=== PATIENT | female | born 1940 | race Caucasian/White ===

== ENCOUNTER 2022-04-02 12:39 | Emergency (ER) | payer OTHER ==
[2022-04-02 13:01] VITALS: RESP 20; TEMP 97.3; BMI 33.6
[2022-04-02] MEDS ORDERED: SODIUM CHLORIDE 0.9% 1000 ML INFUS.BAG IV ONE (13:02)
[2022-04-02 14:44] LABS: BASO % 0.3 % (0-2.0); EOS % 0.8 % (0-4.5); HEMATOCRIT 41.6 % (32.4-45.2); HEMOGLOBIN 14.2 GM/dL (10.7-15.3); LYMPH % 18.4 % (8-40); MCH 30.6 pg (25.7-33.7); MCHC 34.1 g/dl (32.0-36.0); MEAN CELL VOLUME 89.7 fl (80-96); MONO % 10.1 % (3.8-10.2); NEUT % 70.4 % (42.8-82.8); PLATELET COUNT 215 10^3/uL (134-434); RBC 4.63 M/mm3 (3.60-5.2); RDW 13.7 % (11.6-15.6); WHITE BLOOD COUNT 6.5 K/mm3 (4.0-10.0)
[2022-04-02 14:52] LABS: INR 1.02 (0.83-1.09); PROTHROMBIN TIME (PATIENT) 11.7 SEC (9.7-13.0)
[2022-04-02 14:55] LABS: ACTIVATED PTT 25.2 SECONDS (25.2-36.5)
[2022-04-02 15:02] LABS: CALCIUM 8.5 mg/dL (8.5-10.1)
[2022-04-02 15:03] LABS: ALBUMIN 3.1 g/dl (3.4-5.0); BLOOD UREA NITROGEN 26.6 mg/dL (7-18)
[2022-04-02 15:06] LABS: CREATININE 1.9 mg/dL (0.55-1.3)
[2022-04-02 15:07] LABS: BILIRUBIN,TOTAL 1.1 mg/dL (0.2-1); TOT PROT 6.3 g/dl (6.4-8.2)
[2022-04-02] MEDS ORDERED: LACTATED RINGERS SOLUTION 1000 ML INFUS.BAG IV ONE (16:22)
[2022-04-02 17:52] LABS: EPI CELLS 16 /uL (0-25.1); HYALINE CASTS 0 /uL (0-3.1); PH,URINE 5.5 (5.0-8.0); URINE APPEARANCE CLEAR; URINE BACTERIA 175 /uL (0-1359); URINE BILIRUBIN NEGATIVE (NEGATIVE); URINE COLOR YELLOW; URINE GLUCOSE (UA) 3+ (NEGATIVE); URINE KETONE NEGATIVE (NEGATIVE); URINE LEUK ESTERASE 1+ (NEGATIVE); URINE NITRITE NEGATIVE (NEGATIVE); URINE PROTEIN NEGATIVE (NEGATIVE); URINE RBC 6 /uL (0-23.9); URINE UROBILINOGEN 0.2 mg/dL (0.2-1.0); URINE WBC 30 /uL (0-25.8)
[2022-04-02 20:40] VITALS: BP 112/51; PULSE 76
== END 2022-04-02 19:00 | disposition left against medical advice (07) ==
LOC: JER 12:39
DX: R42 Dizziness and giddiness (principal)
CPT/HCPCS: 0241U-QW; 36415; 80053; 81003; 82272; 83605; 83690; 84439; 84443; 85025; 85610; 85730; 87086; 87186; 93005; 93010; 99284-25